=== PATIENT | male | born 1980 | race African-American/Black ===

== ENCOUNTER 2016-08-08 20:00 | Inpatient (IN) | payer OTHER ==
--- NOTE | ~2016-08-08 | PN ---
Unit #: [id number] #: [id number] Patient: JUAN ZULETA [id number] [facility] [address] [place] [address] [id number] MR#: [id number] NAME: JUAN ZULETA. ROOM: [facility] Age: 36 Sex: M Admission Date: 08/09/2016 : 1980 Attending Physician: Fco Rodrigues M.D. Admitting Physician: Fco Rodrigues M.D. Primary Care Physician: Bernardino King PROGRESS NOTES DATE 08/12/2016 DISCUSSION Mr. Zuleta is a 36-year-old, male with mood disorder who was seen today and chart was reviewed and case was discussed with the staff. He has been anxious, withdrawn and rather seclusive to himself. Meanwhile, he has been cooperative with treatment recommendations. He has been taking medications and tolerating them fairly well with no reported side effects. MENTAL STATUS EXAM Young male who was casually dressed with fair personal hygiene, appears to be in no acute distress or discomfort. He was awake and alert with impaired attention and concentration. His mood was anxious with congruent affect. His speech was slow and restricted in content. His thought processes were disorganized with some looseness of associations. His insight and judgement remains significantly impaired. TREATMENT PLAN 1. We will monitor his response and make further adjustments as needed. 2. We will continue to . Dictated by... Bernardino Crowley/kym TD: 08/12/2016 21:22 JOB #: [id number] Unit #: [id number] #: [id number] Patient: JUAN ZULETA SALTY PROGRESS NOTES Page 1 of 1 X Fco Rodrigues MD X PROGRESS NOTE
--- NOTE | ~2016-08-08 | PA ---
Unit #: [id number] #: [id number] Patient: JUAN ZULETA [id number] [facility] [address] [place] [address] [id number] MR#: [id number] NAME: JUAN ZULETA. ROOM: P259 Age: 36 Sex: M Admission Date: 08/09/2016 : 1980 Date of Assessment: Attending Physician: Fco Rodrigues M.D. Admitting Physician: Fco Rodrigues M.D. Primary Care Physician: Aiden Castro M.D. PSYCHIATRIC ASSESSMENT DATE OF SERVICE 08/09/2016. IDENTIFYING DATA Mr. Zuleta is a 36-year-old male, who is a resident of [place], [place], and was self-referred to the hospital on a voluntary basis as a transfer from [facility]. CHIEF COMPLAINT "I've been increasingly depressed for the past few days following the finalization of my divorce." HISTORY OF PRESENT ILLNESS Mr. Zuleta is a 36-year-old male, who took himself to the Emergency Room at [facility], where he presented stating that he has been having increasing depression and being finalization of his divorce and reports that he has been hearing voices inside of his head telling him to harm himself he has experienced them in the past as well. He reports that he has had thoughts every few minutes that telling "just go ahead and do it, why don't you just kill yourself." He reports that he has had minimal support in the town and is originally from [place] and stated that he has been staying with friends since his divorce was finalized this week, but they do drugs and use cocaine again with them for the first time in 2 years and reports that he has no reason to continue living and he is unsure that he can keep himself safe. If he was to be discharged from the hospital, he reports having a plan to overdose on lbcq-weq-yoqinhy medication and shoot himself. He reports that he has access to gun at his friend's home, but would not disclose the name and phone number of the friend; however, he was seen to be a significant threat to himself and therefore, recommendation for inpatient level of care for safety and stabilization was made and patient was transferred to us. SUBSTANCE ABUSE HISTORY The patient reports history of alcohol, cannabis, and cocaine abuse, but reports that he used cocaine just once after a couple of years of being sober and has been occasionally using cannabis. PAST PSYCHIATRIC HISTORY The patient has had history of inpatient psychiatric hospitalizations across different facilities over the years as he has been to [facility], and facility in [place] and has been to [facility], [facility], and review of the Unit #: [id number] #: [id number] Patient: JUAN ZULETA medical records indicate that he is currently not active in treatment program, is not seeing a psychiatrist, not taking any psychotropic medications. PAST MEDICAL HISTORY No acute or chronic medical illnesses. ALLERGIES No known medication allergies. PERSONAL AND SOCIAL HISTORY A 36-year-old male, who reports that he is and and just finally got and has been staying with friends and has poor social support system. MENTAL STATUS EXAMINATION Young male, who was casually dressed with fair personal hygiene, appears to be in no acute distress or discomfort. He was awake and alert on interaction with intact orientation to time, place, and person. His mood was anxious and depressed with a congruent affect. His speech was slow and restricted in content. His thought processes were disorganized with some looseness of associations and flight of ideas. His insight and judgment remain significantly impaired. DIAGNOSTIC IMPRESSION Psychiatric: Major depressive disorder, recurrent, moderate, with psychosis; cocaine abuse, moderate. Medical: None. Stressors: Moderate psychosocial stressors. TREATMENT PLAN 1. The patient has presented with history of mood disorder and psychosis and has been decompensating and will need inpatient hospitalization for safety and stabilization. We will start him back on his home medications. We will adjust the medications and monitor response. 2. Supportive therapy was provided to the patient. 3. Safe, structured, and nourishing environment will be provided. ESTIMATED LENGTH OF STAY 5 to 7 days. ABILITY TO HELP SELF Limited. WILLINGNESS TO HELP SELF The patient appears to be willing to help self. STRENGTHS 1. Communicative. 2. Cooperative. PROBLEMS 1. Chronic dysphoric symptoms. 2. Poor social support system. DISCHARGE CRITERIA This will be contingent upon the patient's ability to show resolution of his depression and psychosis as well as ability to stay safe to himself, particularly after discharge from the hospital. Unit #: [id number] #: [id number] Patient: JUAN ZULETA Dictated by..Bernardino De Paz/tj TD: 08/09/2016 14:25 JOB #: [id number] PSYCHIATRIC ASSESSMENT Page 1 of 1 X Fco Rodrigues MD PSYCHIATRIC ASSESSMENT
--- NOTE | ~2016-08-08 | PN ---
Unit #: [id number] #: [id number] Patient: JUAN ZULETA [id number] [facility] [address] [place] [address] [id number] I MR#: [id number] NAME: JUAN ZULETA. ROOM: [facility] Age: 36 Sex: M Admission Date: 08/09/2016 : 1980 Attending Physician: Fco Rodrigues M.D. Admitting Physician: Fco Rodrigues M.D. Primary Care Physician: Bernardino King PROGRESS NOTES DATE 08/13/2016 DISCUSSION Mr. Zuleta is a 36-year-old male who was seen today and chart was reviewed and case was discussed with the staff. He has been anxious, withdrawn and rather seclusive to himself. Meanwhile, he has been cooperative with treatment recommendations as he is taking medications and tolerating them fairly well with no reported side effects. MENTAL STATUS EXAMINATION Young male who was casually dressed with fair personal hygiene and appears to be in no acute distress or discomfort. He was awake and alert on interaction with intact orientation. His mood was anxious with congruent affect. He denies any suicidal or homicidal ideation. His insight and judgement remains slightly impaired. TREATMENT PLAN 1. Will continue on his current medications and treatment protocol as patient appears to be showing improvement in his depressive symptoms. 2. Will continue to follow up. Dictated by... Fco Rodrigues M.D. IAA/disha TD: 08/13/2016 16:49 JOB #: [id number] Unit #: [id number] #: [id number] Patient: JUAN ZULETA PROGRESS NOTES Page 1 of 1 X Fco Rodrigues MD PROGRESS NOTE
--- NOTE | ~2016-08-08 | PN ---
Unit #: [id number] #: [id number] Patient: JUAN ZULETA [id number] [facility] [address] [place] [address] [id number] I MR#: [id number] NAME: JUAN ZULETA. ROOM: P259 Age: 36 Sex: M Admission Date: 08/09/2016 : 1980 Attending Physician: Fco Rodrigues M.D. Admitting Physician: Fco Rodrigues M.D. Primary Care Physician: Bernardino King PROGRESS NOTES DATE August 10, 2016 DISCUSSION Ms. Zuleta is a 36-year-old male, who was seen today and chart was reviewed and the case was discussed with the staff. He has been anxious, withdrawn, depressed, and rather seclusive to himself. Meanwhile, he has been cooperative with the treatment recommendations and he has been taking the medications and tolerating them fairly well with no reported side effects. MENTAL STATUS EXAMINATION Young male, who was casually dressed with fair personal hygiene and appears to be in no acute distress or discomfort. He was awake and alert on interaction with intact orientation. His mood is anxious with a congruent affect. He denies any suicidal or homicidal ideations. His insight and judgment remain slightly impaired. TREATMENT PLAN 1. We will continue him on his current medications and treatment protocol, and will monitor his response to the medications, and make further adjustments as needed. 2. We will continue to followup. Dictated by... Bernardino Crowley/mary TD: 08/11/2016 14:28 JOB #: [id number] Unit #: [id number] #: [id number] Patient: JUAN ZULETA PROGRESS NOTES Page 1 of 1 X Fco Rodrigues MD PROGRESS NOTE
--- NOTE | ~2016-08-08 | PN ---
Unit #: [id number] #: [id number] Patient: JUAN ZULETA [id number] [facility] [address] [place] [address] [id number] I MR#: [id number] NAME: JUAN ZULETA. ROOM: 63 Age: 36 Sex: M Admission Date: 08/09/2016 : 1980 Attending Physician: Fco Rodrigues M.D. Admitting Physician: Fco Rordigues M.D. Primary Care Physician: Bernardino King PROGRESS NOTES DATE August 11, 2016 DISCUSSION Mr. Zuleta is a 36-year-old male, who was seen today and chart was reviewed and the case was discussed with the staff. He remains anxious, withdrawn, depressed, and rather seclusive. Meanwhile, he has been cooperative with the treatment recommendations and he has been taking the medications and tolerating them fairly well. MENTAL STATUS EXAMINATION Young male, who was casually dressed with fair personal hygiene and appears to be in no acute distress or discomfort. He was awake and alert with impaired attention and concentration. His mood is anxious with a congruent affect. He denies any suicidal or homicidal ideations. His insight and judgment remain slightly impaired. TREATMENT PLAN 1. We will continue him on his current medications and treatment protocol, and will monitor his response, and make further adjustments as needed. 2. We will continue to followup. Dictated by... Bernardino Crowley/mary TD: 08/12/2016 12:05 JOB #: [id number] Unit #: [id number] #: [id number] Patient: JUAN ZULETA PROGRESS NOTES Page 1 of 1 X Fco Rodrigues MD X PROGRESS NOTE
--- NOTE | ~2016-08-08 | DS ---
Unit #: [id number] #: [id number] Patient: JUAN ZULETA [id number] [facility] [address] [place] [address] [id number] I MR#: [id number] NAME: JUAN ZULETA. ROOM: [facility] Age: 36 Sex: M Admission Date: 08/09/2016 : 1980 Discharge Date: 08/14/2016 Attending Physician: Fco Rodrigues M.D. Primary Care Physician: Aiden Castro M.D. DISCHARGE SUMMARY IDENTIFYING DATA Mr. Zuleta is a 36-year-old, , male who is a resident of [place], [place], and was self-referred to the hospital on voluntary basis. DISCHARGE DIAGNOSES Psychiatric: Major depressive disorder, recurrent, moderate, with psychosis; cocaine abuse, moderate. Medical: None. Stressors: Moderate psychosocial stressors. HISTORY OF PRESENT ILLNESS Please see initial psychiatric evaluation for details. PAST PSYCHIATRIC HISTORY Please see initial psychiatric evaluation for details. PAST MEDICAL HISTORY Please see initial psychiatric evaluation for details. HOSPITAL COURSE The patient was admitted to the adult psychiatric unit at [facility] gloria Berkowitz and was oriented to the hospital environment. Routine p.r.n. medications were initiated, and p.r.n. medications were initiated, and he was closely monitored. He was initially seen to be acutely psychotic with bizarre behavior, blunted affect, and was just staring and would not interact or socialize very much and Risperdal and Celexa were initiated as an antidepressant and antipsychotic, and he was seen to be doing better and was calm and cooperative with treatment recommendation and was taking the medications regularly and was tolerating them fairly well and was able to show a slow, but therapeutic response and then was noticed to be interacting with peers, and socializing and exhibiting facial expressions and emotions and was denying any thoughts of suicide, intent, or plan and was willing to continue treatment on an outpatient basis and as such, it was decided that he will be discharged home and will continue treatment on an outpatient basis. DISCHARGE MEDICATIONS Celexa 20 mg a day for depression and Risperdal 1 mg at bedtime for psychosis. DISCHARGE CONDITION Stable. Unit #: [id number] #: [id number] Patient: JUAN ZULETA CIARA Rivero. Dictated by... Bernardino Crowley/tj TD: 08/16/2016 18:43 JOB #: [id number] DISCHARGE SUMMARY Page 1 of 1 X cFo Rodrigues MD DISCHARGE SUMMARY
--- NOTE | ~2016-08-08 | CO ---
Unit #: [id number] #: [id number] Patient: JUAN ROMERO [id number] [place] [address] [id number] I MR#: [id number] NAME: JUAN ROMERO. ROOM: 63 Age: 36 Sex: M Admission Date: 08/09/2016 : 1980 Attending Physician: Fco Rodrigues M.D. Primary Care Physician: Aiden Castro M.D. Consultation Date: 08/11/2016 CONSULTATION REPORT SUBJECTIVE Juan is a 36-year-old who complains of a scattered itchy vesicular rash. We have been asked to assess and treat. He reports that he has been on the ground/in the grass. The rash is very itchy. OBJECTIVE GENERAL: Alert, obese, no apparent distress. VITAL SIGNS: Blood pressure 120/70, heart rate 80, respirations 16, temperature 98.6. SKIN: Warm and dry. He has scattered vesicular rash on his arms and legs and bilateral buttocks. ASSESSMENT Contact dermatitis. PLAN Depo-Medrol 80 mg IM now. Dictated by... Eileen Deleon P.A.-C. for Bernardino Simpson/tj TD: 08/12/2016 02:06 JOB #: [id number] CONSULTATION REPORT Page 1 of 1 X Eileen Deleon CONSULTATION REPORT
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
[~2016-08-08 20:00] MED LIST: FLEXERIL10 MG PO; NO MEDICATIONS; VOLTAREN75 MG PO; ZOFRANODT PO
== END 2016-08-14 11:15 | disposition home or self-care (01) | DRG 885 ==
LOC: P2L 08-09 00:15 → POF 08-11 15:09 → P2L 08-11 15:15
DX: F33.1 Major depressive disorder, recurrent, moderate (principal); F29 Unspecified psychosis not due to a substance or known physiological condition; F14.10 Cocaine abuse, uncomplicated; F41.9 Anxiety disorder, unspecified; F17.210 Nicotine dependence, cigarettes, uncomplicated; L30.9 Dermatitis, unspecified
CPT/HCPCS: J1040